=== PATIENT | male | born 1965 | race Caucasian/White ===

== ENCOUNTER 2022-11-19 15:40 | Emergency (ER) | payer BC, OTHER ==
[2022-11-19 15:55] VITALS: BMI 29.0
[2022-11-19 18:47] VITALS: BP 115/75; PULSE 56; RESP 16; TEMP 97.7
== END 2022-11-19 18:52 | disposition home or self-care (01) ==
LOC: JER 15:40
DX: T18.9XXA Foreign body of alimentary tract, part unspecified, initial encounter (principal)
CPT/HCPCS: 71046-TC-FY; 74021-TC-FY; 99283-25